=== PATIENT | female | born 1945 | race Caucasian/White ===

== ENCOUNTER 2017-03-03 23:17 | Inpatient (IN) | payer MEDICARE ==
[~2017-03-03] VITALS: Ht 172.7 cm; Wt 76.0 kg
[~2017-03-03 23:17] MED LIST: CYCL-36; HYDR-3533 PO; LEVO.2 PO; PROT40TA PO; SULF1TAB47 PO
[2017-03-03 23:24] VITALS: BP 179/97; PULSE 147; RESP 16; TEMP 101.2; O2SAT 97
[2017-03-03 23:25] VITALS: BP 179/97; PULSE 147; RESP 24; TEMP 101.2; O2SAT 95
[2017-03-03 23:30] VITALS: O2SAT 98
[2017-03-03] MEDS ORDERED: SODIUM CHLOR 0.9% 1000 ML INJ 1,000 ML IV ONE ×2 (23:34)
[2017-03-03 23:45] VITALS: BP 178/79; PULSE 145; RESP 24; TEMP 101.2; O2SAT 95
[2017-03-03] MEDS ORDERED: ACETAMINOPHEN 325 MG TAB PO ONE (23:45)
--- NOTE | 2017-03-03 23:53 | RADRPT ---
EXAM DATE/TIME: 03/03/2017 23:40 [place] COMPARISON: CHEST SINGLE AP, March 02, 2012, report only. INDICATIONS : Fever, cough. MEDICAL HISTORY : Hypertension. SURGICAL HISTORY : None. ENCOUNTER: Initial ACUITY: 1 day PAIN SCORE: 0/10 LOCATION: Bilateral chest FINDINGS: A single view of the chest demonstrates the lungs to be symmetrically aerated without evidence of mas s, infiltrate or effusion. There is mild diffuse prominence of the interstitial markings. The cardi omediastinal contours are unremarkable. Moderate scoliosis of the thoracic spine convex to the right . Absence of the humeral heads and tapering of the lateral aspect of the clavicles CONCLUSION: 1. Mild interstitial prominence without focal infiltrates. Derrick Cortes MD on March 03, 2017 at 23:49 Board Certified Radiologist. This report was verified electronically.
[2017-03-04] VITALS (12 sets, daily range): BP systolic 111–168; BP diastolic 57–97; PULSE 92–138; RESP 12–20; TEMP 96.5–100.6; O2SAT 97–99
[2017-03-04 00:30] LABS: CHLORIDE 103 MEQ/L (98-107); SODIUM (NA) 136 MEQ/L (136-145)
[2017-03-04 00:33] LABS: APTT (PATIENT) 21.4 SEC (24.3-30.1)
[2017-03-04 00:34] LABS: ANION GAP 10 MEQ/L (5-15); BICARBONATE 23.3 MEQ/L (21.0-32.0); BLOOD UREA NITROGEN 21 MG/DL (7-18)
[2017-03-04 00:37] LABS: ALT (GPT) 16 U/L (10-53); AST (GOT) 17 U/L (15-37); GLOMERULAR FILTRATION RATE 56 ML/MIN (>89)
[2017-03-04 00:39] LABS: TOTAL BILIRUBIN ADULT 0.3 MG/DL (0.2-1.0)
[2017-03-04] MEDS ORDERED: LEVO150T7 PO (00:39)
[2017-03-04] MEDS ORDERED: LISI10TA3 PO (00:39)
[2017-03-04 00:40] LABS: ALKALINE PHOSPHATASE 128 U/L (45-117)
[2017-03-04] MEDS ORDERED: MORPHINE SULFATE 4 MG/ML INJ IV PUSH ONE (00:45)
--- NOTE | 2017-03-04 01:10 | PD ---
HPI Chief Complaint: Fever Time Seen by Provider: 23:31 Travel History International Travel<30 days: No Contact w/Intl Traveler<30days: No Traveled to known affect area: No History of Present Illness HPI Patient is a 71 year old female who comes in complaining of bodyaches for the past day. She says she started to have pain to her arms and legs this afternoon. She reports chills, but did not take her temperature at home. Her daughter says it seems like she has been short of breath. She denies cough or chest pain. She denies nausea or vomiting. She denies abdominal pain or urinary symptoms. She takes Lortab at home for pain, but has not taken it this evening. 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 PFSH Past Medical History Arthritis: Yes (hips) Anxiety: Yes Dementia: Yes Diminished Hearing: No Genitourinary: Yes Hypertension: Yes Neurologic: Yes (neuropathy; gullien isis ) Immunizations Current: Yes Thyroid Disease: Yes Tetanus Vaccination: > 5 Years : 1 Para: 1 Dilation and Curettage (D&C): Yes Tubal Ligation: Yes Past Surgical History Surgical History: No Previous Surgery Social History Alcohol Use: Yes (OCC GLASS OF WINE) Tobacco Use: No (QUIT 30 YEARS AGO) Substance Use: No Allergies-Medications (Allergen,Severity, Reaction): Coded Allergies: codeine (Verified Allergy, Mild, RASH, 03/04/17) itching Reported Meds & Prescriptions Reported Meds & Active Scripts Active Reported Lisinopril 10 Mg Tab 10 Mg PO DAILY Levothyroxine (Levothyroxine Sodium) 150 Mcg Tab 150 Mcg PO DAILY Flexeril (Cyclobenzaprine HCl) 10 Mg Tab 10 Mg .ROUTE HS Lortab 5 mg/325 mg (Hydrocodone/Acetaminophen 5 mg/325 mg) 1 Tab 1 Tab PO Q4H PRN Review of Systems Except as stated in HPI: all other systems reviewed are Neg General / Constitutional: Positive: Chills HENT: No: Headaches, Lightheadedness Cardiovascular: No: Chest Pain or Discomfort Respiratory: No: Cough Gastrointestinal: No: Nausea, Vomiting, Abdominal Pain Genitourinary: No: Dysuria Musculoskeletal: Positive: Myalgias, Arthralgias, No: Edema Skin: No Rash, No Change in Pigmentation Neurologic: No: Weakness, Dizziness, Syncope Physical Exam Narrative GENERAL: Awake and alert, in no acute distress. SKIN: Focused skin assessment warm/dry. Left lower extremity warm to the touch. HEAD: Atraumatic. Normocephalic. EYES: Pupils equal and round. No scleral icterus. ENT: Mucous membranes pink and moist. NECK: Trachea midline. No JVD. CARDIOVASCULAR: Tachycardia, regular rhythm. No murmur appreciated. RESPIRATORY: No accessory muscle use. Decreased breath sounds throughout both lungs. Breath sounds equal bilaterally. GASTROINTESTINAL: Abdomen soft, non-tender, nondistended. MUSCULOSKELETAL: No obvious deformities. No clubbing. No cyanosis. No edema. NEUROLOGICAL: Awake and alert. No obvious cranial nerve deficits. Motor grossly within normal limits. Normal speech. PSYCHIATRIC: Appropriate mood and affect; insight and judgment normal. Data Data Last Documented VS Vital Signs Date Time Temp Pulse Resp B/P (MAP) Pulse Ox O2 Delivery O2 Flow Rate FiO2 03/04/17 01:46 100.6 118 18 135/68 (90) 98 2.00 03/04/17 00:47 Nasal Cannula Orders Orders Sepsis Workup Initiated (03/03/17 ) Complete Blood Count With Diff (03/03/17 23:34) Comprehensive Metabolic Panel (03/03/17 23:34) Prothrombin Time / Inr (Pt) (03/03/17 23:34) Act Partial Throm Time (Ptt) (03/03/17 23:34) Lactic Acid Sepsis Protocol (03/03/17 23:34) Lipase (03/03/17 23:34) Urinalysis - C+S If Indicated (03/03/17 23:34) Influenzae A/B Antigen (03/03/17 23:34) Blood Culture (03/03/17 23:34) Chest, Single Ap (03/03/17 23:34) Blood Glucose (03/03/17 23:34) Ecg Monitoring (03/03/17 23:34) Iv Access Insert/Monitor (03/03/17 23:34) Oximetry (03/03/17 23:34) Oxygen Administration (03/03/17 23:34) Acetaminophen (Tylenol) (03/03/17 23:45) Sodium Chlor 0.9% 1000 Ml Inj (Ns 1000 M (03/03/17 23:34) Sodium Chlor 0.9% 1000 Ml Inj (Ns 1000 M (03/03/17 23:34) Morphine Inj (Morphine Inj) (03/04/17 00:45) Ketorolac Inj (Toradol Inj) (03/04/17 01:45) Levofloxacin 750 Mg Premix Inj (Levaquin (03/04/17 01:45) Urine Culture (03/04/17 01:24) Vancomycin Inj (Vancomycin Inj) (03/04/17 02:15) Labs Laboratory Tests Test 03/04/17 00:09 03/04/17 00:55 03/04/17 01:24 Prothrombin Time 10.0 SEC Prothromb Time International Ratio 1.0 RATIO Activated Partial Thromboplast Time 21.4 SEC Blood Urea Nitrogen 21 MG/DL Creatinine 0.98 MG/DL Random Glucose 133 MG/DL Total Protein 7.8 GM/DL Albumin 3.4 GM/DL Calcium Level 9.1 MG/DL Alkaline Phosphatase 128 U/L Aspartate Amino Transf (AST/SGOT) 17 U/L Alanine Aminotransferase (ALT/SGPT) 16 U/L Total Bilirubin 0.3 MG/DL Sodium Level 136 MEQ/L Potassium Level 4.0 MEQ/L Chloride Level 103 MEQ/L Carbon Dioxide Level 23.3 MEQ/L Anion Gap 10 MEQ/L Estimat Glomerular Filtration Rate 56 ML/MIN Lactic Acid Level 2.1 mmol/L Lipase 314 U/L White Blood Count 10.2 TH/MM3 Red Blood Count 5.42 MIL/MM3 Hemoglobin 12.1 GM/DL Hematocrit 37.8 % Mean Corpuscular Volume 69.8 FL Mean Corpuscular Hemoglobin 22.3 PG Mean Corpuscular Hemoglobin Concent 32.0 % Red Cell Distribution Width 15.3 % Platelet Count 156 TH/MM3 Mean Platelet Volume 7.6 FL Neutrophils (%) (Auto) 92.5 % Lymphocytes (%) (Auto) 4.6 % Monocytes (%) (Auto) 2.7 % Eosinophils (%) (Auto) 0.1 % Basophils (%) (Auto) 0.1 % Neutrophils # (Auto) 9.4 TH/MM3 Lymphocytes # (Auto) 0.5 TH/MM3 Monocytes # (Auto) 0.3 TH/MM3 Eosinophils # (Auto) 0.0 TH/MM3 Basophils # (Auto) 0.0 TH/MM3 CBC Comment AUTO DIFF Differential Comment AUTO DIFF CONFIRMED Platelet Estimate NORMAL Platelet Morphology Comment NORMAL Ovalocytes 1+ Urine Color YELLOW Urine Turbidity SLIGHT Urine pH 5.5 Urine Specific [place] 1.015 Urine Protein NEG mg/dL Urine Glucose (UA) NEG mg/dL Urine Ketones NEG mg/dL Urine Occult Blood MOD Urine Nitrite NEG Urine Bilirubin NEG Urine Leukocyte Esterase SMALL Urine RBC 4-9 /hpf Urine WBC 9-14 /hpf Urine Squamous Epithelial Cells 0-5 /hpf Urine Mucus OCC /lpf Microscopic Urinalysis Comment CULTURE INDICATED MDM Medical Decision Making Medical Screen Exam Complete: Yes Emergency Medical Condition: Yes Medical Record Reviewed: Yes Differential Diagnosis sepsis vs pneumonia vs UTI vs cellulitis Narrative Course Patient is a 71-year-old female who comes in complaining of body aches and just feeling unwell. Exam shows some erythema and warmth to the left leg. She has decreased breath sounds in both lungs. IV established, labs sent. Patient given 2 L of fluids. Given Tylenol. Labs show a lactic acid of 2.1. BUN/creatinine creatinine suggest dehydration. Urine is positive for white blood cells. Chest x-ray is concerning for possible early pneumonia, shows and interstitial prominence. Chest X-Ray 03/03/17 1799 Signed Impressions: Service Date/Time: Friday, March 03, 2017 23:40 - CONCLUSION: 1. Mild interstitial prominence without focal infiltrates. Derrick Cortes MD Patient given Levaquin and vancomycin. Concern is for sepsis from pneumonia versus cellulitis. Patient will be admitted for further management. Sepsis Criteria SIRS Criteria (2 or more): Temp > 100.9 or < 96.8, Heart rate over 90 Sepsis Criteria (SIRS+source): Infect source susp/known Severe Sepsis (+one): Lactate >2 Criteria Outcome: Meets sepsis criteria Diagnosis Primary Impression: Sepsis Qualified Codes: A41.9 - Sepsis, unspecified organism Admitting Information Admitting Physician Requests: Admit Becky Acuña MD Mar 04, 2017 01:09
[2017-03-04 01:36] LABS: AUTOMATED NEUTROPHIL # 9.4 TH/MM3 (1.8-7.7); BASOPHIL % 0.1 % (0.0-2.0); EOSINOPHIL % 0.1 % (0.0-4.0); HEMATOCRIT 37.8 % (35.0-46.0); LYMPH % 4.6 % (9.0-44.0); LYMPHOCYTE # 0.5 TH/MM3 (1.0-4.8); MEAN CELL VOLUME 69.8 FL (80.0-100.0); MEAN CORPUSCULAR HEMOGLOBIN 22.3 PG (27.0-34.0); MONO % 2.7 % (0.0-8.0); NEUT % 92.5 % (16.0-70.0); PLATELET COUNT 156 TH/MM3 (150-450); RED BLOOD COUNT 5.42 MIL/MM3 (4.00-5.30); RED CELL DISTRIBUTION WIDTH 15.3 % (11.6-17.2); WHITE BLOOD COUNT 10.2 TH/MM3 (4.0-11.0)
[2017-03-04 01:39] LABS: BLOOD, URINE MOD (NEG); GLUCOSE,URINE NEG (NEG); KETONE, URINE NEG (NEG); NITRITE,URINE NEG (NEG); PH, URINE 5.5 (5.0-8.5)
[2017-03-04 01:45] LABS: HEMO FLAGS AUTO DIFF
[2017-03-04] MEDS ORDERED: KETOROLAC TROMETHAMINE 30 MG/ML (IVP) VIAL IV PUSH ONE (01:45)
[2017-03-04] MEDS ORDERED: LEVOFLOXACIN 750 MG PREMIX INJ 150 ML IV ONE (01:45)
[2017-03-04 01:49] LABS: OVALOCYTES 1+ (NORMAL)
[2017-03-04 01:50] LABS: PLATELET ESTIMATE SMEAR NORMAL (NORMAL); PLATELET MORPHOLOGY NORMAL (NORMAL); SCAN/DIFF AUTO DIFF CONFIRMED
[2017-03-04 01:57] LABS: SQUAMOUS EPITHELIAL CELL URINE 0-5 /hpf (0-5); URINE COLOR YELLOW (YELLW/STRAW)
[2017-03-04 01:59] LABS: COMMENT (UR) CULTURE INDICATED; CULTURE IF INDICATED CULTURE INDICATED; MUCUS URINE OCC /lpf (OCC)
[2017-03-04] MEDS ORDERED: VANCOMYCIN INJ 1,000 MG in SODIUM CHLOR 0.9% 250 ML INJ 250 ML IV ONE (02:15)
[2017-03-04 02:16] LABS: LACTIC ACID GHOST NOT REPORTABLE
[2017-03-04] MEDS ORDERED: ONDANSETRON HCL 4 MG/2 ML VIAL IVP PRN (03:15)
[2017-03-04] MEDS: ENOXAPARIN SODIUM 40 MG/0.4 ML SYRINGE SQ SCH (03:15)
[2017-03-04] MEDS ORDERED: Vancomycin Consult Pharmacy 1 EA OTHER SCH (03:15)
[2017-03-04] MEDS ORDERED: ACETAMINOPHEN 325 MG TAB PO PRN (03:15)
[2017-03-04] MEDS ORDERED: SODIUM CHLORIDE 0.9% FLUSH 10 ML FLUSH IV FLUSH PRN (03:15)
[2017-03-04] MEDS ORDERED: NALOXONE HCL 0.4 MG/ML AMP IV PUSH PRN (03:15)
[2017-03-04] MEDS: LEVOTHYROXINE SODIUM 75 MCG TAB PO SCH (06:17)
[2017-03-04] MEDS: ACETAMINOPHEN/HYDROcodone 325 MG/5 MG TAB PO PRN ×3 (06:26→18:51)
[2017-03-04] MEDS: SODIUM CHLORIDE 0.9% FLUSH 10 ML FLUSH IV FLUSH SCH (08:38)
[2017-03-04] MEDS: LISINOPRIL 10 MG TAB PO SCH (08:38)
--- NOTE | 2017-03-04 11:11 | HHI.HP ---
HPI Service [facility] Primary Care Physician Duc Haque MD Admission Diagnosis sepsis, pneumonia, cellulitis Diagnoses: Chief Complaint: fevers, chills Travel History International Travel<30 Days: No Contact w/Intl Traveler <30 Da: No Traveled to Known Affected Are: No History of Present Illness 71-year-old white female being admitted for sepsis secondary to possible cellulitis. Patient was in her usual state of health until sometime yesterday she said she felt a sudden onset of fevers, shaking, weakness. She noticed that her left lower leg was red and she thinks she was slightly short of breath due to her weakness. She denies having any new cough. She denies having any new pain symptoms anywhere in her body. Denies any dysuria. She said she took some Tylenol to some mild relief. At this point she decided come to the emergency room. She says that since last night the redness in her leg is essentially gone. Her lactic acid was elevated and a chest x-ray which I independently reviewed shows no focal infiltrates. 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 Significant arthritis Allergies: Coded Allergies: codeine (Verified Allergy, Mild, RASH, 03/04/17) itching Physical Exam Vital Signs Vital Signs Date Time Temp Pulse Resp B/P (MAP) Pulse Ox O2 Delivery O2 Flow Rate FiO2 03/04/17 08:00 98.0 102 12 140/64 (89) 97 03/04/17 04:33 99 Nasal Cannula 2.00 03/04/17 04:10 98.5 102 20 132/65 (87) 99 03/04/17 03:57 03/04/17 03:29 98.1 105 18 128/68 (88) 98 Nasal Cannula 2.00 03/04/17 02:22 99.4 115 18 134/70 (91) 98 Nasal Cannula 2.00 03/04/17 01:46 100.6 118 18 135/68 (90) 98 2.00 03/04/17 00:47 99.4 125 20 160/97 (118) 98 Nasal Cannula 2.00 03/04/17 00:00 138 20 168/87 (114) 98 Nasal Cannula 2.00 03/03/17 23:45 101.2 145 24 178/79 (112) 95 Room Air 03/03/17 23:30 98 Nasal Cannula 2.00 03/03/17 23:30 98 Nasal Cannula 2.00 03/03/17 23:30 98 Nasal Cannula 2.00 03/03/17 23:25 101.2 147 24 179/97 (124) 95 03/03/17 23:24 101.2 147 16 179/97 (124) 97 Physical Exam VS: Having fevers GENERAL: Elderly white female, well nourished for her age, no acute distress SKIN: Warm and dry. Has evidence of mild to moderate then use insufficiency and lower legs with onychomycosis on her feet. Has no noticeable erythema today on her left lower extremity that she says she had yesterday. EYES: No scleral icterus. No injection or drainage. ENT: No nasal bleeding or discharge. Mucous membranes pink and moist. CARDIOVASCULAR: Regular rate and rhythm. no murmurs RESPIRATORY: No accessory muscle use. Has good breath sounds bilaterally with very minimal crackles at the bases bilaterally GASTROINTESTINAL: Abdomen soft, non-tender, nondistended. Extremities: No clubbing, cyanosis, or edema. MUSCULOSKELETAL: grossly intact ROM with 5/5 strength in upper and lower extremities proximally. Significant edema with what appears to be cystic collections from fluid on her right wrist and her left ankle which is otherwise nontender to palpation and nonerythematous NEUROLOGICAL: Awake and alert. No obvious cranial nerve deficits. No facial droop nor slurred speech noted. PSYCHIATRIC: Appropriate mood and affect; insight and judgment normal. Laboratory Laboratory Tests Test 03/04/17 00:09 03/04/17 00:55 03/04/17 01:24 03/04/17 02:20 Prothrombin Time 10.0 Prothromb Time International Ratio 1.0 Activated Partial Thromboplast Time 21.4 Blood Urea Nitrogen 21 Creatinine 0.98 Random Glucose 133 Total Protein 7.8 Albumin 3.4 Calcium Level 9.1 Alkaline Phosphatase 128 Aspartate Amino Transf (AST/SGOT) 17 Alanine Aminotransferase (ALT/SGPT) 16 Total Bilirubin 0.3 Sodium Level 136 Potassium Level 4.0 Chloride Level 103 Carbon Dioxide Level 23.3 Anion Gap 10 Estimat Glomerular Filtration Rate 56 Lactic Acid Level 2.1 1.4 Lipase 314 Thyroid Stimulating Hormone 3rd Gen 0.199 White Blood Count 10.2 Red Blood Count 5.42 Hemoglobin 12.1 Hematocrit 37.8 Mean Corpuscular Volume 69.8 Mean Corpuscular Hemoglobin 22.3 Mean Corpuscular Hemoglobin Concent 32.0 Red Cell Distribution Width 15.3 Platelet Count 156 Mean Platelet Volume 7.6 Neutrophils (%) (Auto) 92.5 Lymphocytes (%) (Auto) 4.6 Monocytes (%) (Auto) 2.7 Eosinophils (%) (Auto) 0.1 Basophils (%) (Auto) 0.1 Neutrophils # (Auto) 9.4 Lymphocytes # (Auto) 0.5 Monocytes # (Auto) 0.3 Eosinophils # (Auto) 0.0 Basophils # (Auto) 0.0 CBC Comment AUTO DIFF Differential Comment AUTO DIFF CONFIRMED Platelet Estimate NORMAL Platelet Morphology Comment NORMAL Ovalocytes 1+ Urine Color YELLOW Urine Turbidity SLIGHT Urine pH 5.5 Urine Specific [place] 1.015 Urine Protein NEG Urine Glucose (UA) NEG Urine Ketones NEG Urine Occult Blood MOD Urine Nitrite NEG Urine Bilirubin NEG Urine Leukocyte Esterase SMALL Urine RBC 4-9 Urine WBC 9-14 Urine Squamous Epithelial Cells 0-5 Urine Mucus OCC Microscopic Urinalysis Comment CULTURE INDICATED Date/Time Source Procedure Growth Status 03/04/17 00:09 Blood Peripheral Aerobic Blood Culture Pending Received 03/04/17 00:09 Blood Peripheral Anaerobic Blood Culture Pending Received 03/04/17 00:12 Nasal Washing Influenza Types A,B Antigen (NAHID) - Final NEGATIVE FOR FLU A AND B ANTIGEN.... Complete 03/04/17 01:24 Urine Clean Catch Urine Culture Pending Received Result Diagram: 03/04/17 0055 03/04/17 0009 Imaging Last Impressions Chest X-Ray 03/03/17 2334 Signed Impressions: Service Date/Time: Friday, March 03, 2017 23:40 - CONCLUSION: 1. Mild interstitial prominence without focal infiltrates. MD Sade Downing VTE Risk Assessment Caprini VTE Risk Assessment: Mod/High Risk (score >= 2) Caprini Risk Assessment Model Point Value = 1 Point Value = 2 Point Value = 3 Point Value = 5 Age 41-60 Minor surgery BMI > 25 kg/m2 Swollen legs Varicose veins or History of unexplained or recurrent spontaneous Oral contraceptives or hormone replacement Sepsis (< 1 month) Serious lung disease, including pneumonia (< 1 month) Abnormal pulmonary function Acute myocardial infarction Congestive heart failure (< 1 month) History of inflammatory bowel disease Medical patient at bed rest Age 61-74 Arthroscopic surgery Major open surgery (> 45 min) Laparoscopic surgery (> 45 min) Malignancy Confined to bed (> 72 hours) Immobilizing plaster cast Central venous access Age >= 75 History of VTE Family history of VTE Factor V Leiden Prothrombin [id number] Lupus anticoagulant Anticardiolipin antibodies Elevated serum homocysteine Heparin-induced thrombocytopenia Other congenital or acquired thrombophilia Stroke (< 1 month) Elective arthroplasty Hip, pelvis, or leg fracture Acute spinal cord injury (< 1 month) Prophylaxis Regimen Total Risk Factor Score Risk Level Prophylaxis Regimen 0-1 Low Early ambulation 2 Moderate Order ONE of the following: *Sequential Compression Device (SCD) *Heparin 5000 units SQ BID 3-4 Higher Order ONE of the following medications: *Heparin 5000 units SQ TID *Enoxaparin/Lovenox 40 mg SQ daily (WT < 150 kg, CrCl > 30 mL/min) *Enoxaparin/Lovenox 30 mg SQ daily (WT < 150 kg, CrCl > 10-29 mL/min) *Enoxaparin/Lovenox 30 mg SQ BID (WT < 150 kg, CrCl > 30 mL/min) AND/OR *Sequential Compression Device (SCD) 5 or more Highest Order ONE of the following medications: *Heparin 5000 units SQ TID (Preferred with Epidurals) *Enoxaparin/Lovenox 40 mg SQ daily (WT < 150 kg, CrCl > 30 mL/min) *Enoxaparin/Lovenox 30 mg SQ daily (WT < 150 kg, CrCl > 10-29 mL/min) *Enoxaparin/Lovenox 30 mg SQ BID (WT < 150 kg, CrCl > 30 mL/min) AND *Sequential Compression Device (SCD) Assessment and Plan Assessment and Plan 71-year-old white female admitted for sepsis secondary to cellulitis Sepsis - Lactic acid significantly improved, blood cultures pending - Continue broad-spectrum antibiotics - Most likely was secondary to cellulitis, clinically improving - Unlikely respiratory cause; no evidence of clinical UTI, will therefore not obtain UA Hypothyroidism - Continue home medication Arthritis - Continue home pain medication lovenox Physician Certification 2 Midnight Certification Type: Admission for Inpatient Services Order for Inpatient Services The services are ordered in accordance with Medicare regulations or non- Medicare payer requirements, as applicable. In the case of services not specified as inpatient-only, they are appropriately provided as inpatient services in accordance with the 2-midnight benchmark. days is the estimated time the patient will need to remain in the hospital, assuming treatment plan goals are met and no additional complications. Matteo Lunsford MD Mar 04, 2017 11:11
[2017-03-04] MEDS ORDERED: ENOXAPARIN SODIUM 30 MG/0.3 ML SYRINGE SQ SCH (12:00)
[2017-03-04] MEDS ORDERED: FUROSEMIDE 20 MG/2 ML VIAL IV PUSH ONE (12:00)
[2017-03-04] MEDS: VANCOMYCIN INJ 1,300 MG in SODIUM CHLORID 0.9% 500 ML INJ 500 ML IV SCH (16:25)
[2017-03-05] VITALS: BP 124/74; PULSE 97; RESP 18; TEMP 98.9; O2SAT 95
[2017-03-05] MEDS: ACETAMINOPHEN/HYDROcodone 325 MG/5 MG TAB PO PRN ×2 (01:17→09:08)
[2017-03-05] MEDS: SODIUM CHLORIDE 0.9% FLUSH 10 ML FLUSH IV FLUSH SCH ×2 (01:18→09:08)
[2017-03-05] MEDS ORDERED: LEVOFLOXACIN 750 MG PREMIX INJ 150 ML IV SCH (01:30)
[2017-03-05] MEDS: ENOXAPARIN SODIUM 40 MG/0.4 ML SYRINGE SQ SCH (03:18)
[2017-03-05 04:00] VITALS: BP 130/70; PULSE 101; RESP 20; TEMP 97.9; O2SAT 93
[2017-03-05] MEDS: LEVOTHYROXINE SODIUM 75 MCG TAB PO SCH (05:18)
[2017-03-05 05:49] LABS: AUTOMATED NEUTROPHIL # 3.7 TH/MM3 (1.8-7.7); BASOPHIL % 0.2 % (0.0-2.0); EOSINOPHIL % 0.4 % (0.0-4.0); HEMATOCRIT 30.2 % (35.0-46.0); LYMPH % 25.8 % (9.0-44.0); LYMPHOCYTE # 1.4 TH/MM3 (1.0-4.8); MEAN CELL VOLUME 72.4 FL (80.0-100.0); MEAN CORPUSCULAR HEMOGLOBIN 22.5 PG (27.0-34.0); MONO % 6.5 % (0.0-8.0); NEUT % 67.1 % (16.0-70.0); PLATELET COUNT 123 TH/MM3 (150-450); RED BLOOD COUNT 4.18 MIL/MM3 (4.00-5.30); RED CELL DISTRIBUTION WIDTH 15.8 % (11.6-17.2); WHITE BLOOD COUNT 5.5 TH/MM3 (4.0-11.0)
[2017-03-05 05:57] LABS: HEMO FLAGS AUTO DIFF
[2017-03-05 07:19] LABS: OVALOCYTES 1+ (NORMAL); PLATELET ESTIMATE SMEAR LOW (NORMAL); PLATELET MORPHOLOGY NORMAL (NORMAL); SCAN/DIFF AUTO DIFF CONFIRMED
[2017-03-05 08:00] VITALS: PULSE 74
[2017-03-05] MEDS: LISINOPRIL 10 MG TAB PO SCH (09:08)
[2017-03-05 09:20] VITALS: BP 157/103; PULSE 93; RESP 14; TEMP 97.6; O2SAT 100
[2017-03-05] MEDS: VANCOMYCIN INJ 1,300 MG in SODIUM CHLORID 0.9% 500 ML INJ 500 ML IV SCH (11:22)
--- NOTE | 2017-03-05 14:13 | HHI.DCPOC ---
Discharge Care Plan Diagnosis: (1) Sepsis Goals to Promote Your Health * To prevent worsening of your condition and complications * To maintain your health at the optimal level Directions to Meet Your Goals Take your medications as prescribed Follow your dietary instruction Follow activity as directed Keep your appointments as scheduled Take your immunizations and boosters as scheduled If your symptoms worsen call your PCP, if no PCP go to Urgent Care Center or Emergency Room Smoking is Dangerous to Your Health. Avoid second hand smoke Call the 24-hour hour crisis hotline for domestic abuse at Abril Orellana MD Mar 05, 2017 14:13
[2017-03-05] MEDS ORDERED: LEVO500T8 PO (14:14)
--- NOTE | 2017-03-05 14:18 | HHI.DS ---
Discharge Summary Admission Date Mar 04, 2017 at 03:09 Discharge Date: Mar 05, 2017 Admitting Diagnosis sepsis, pneumonia, cellulitis (1) Cellulitis ICD Code: L03.90 - Cellulitis, unspecified (2) Sepsis due to pneumonia ICD Code: J18.9 - Pneumonia, unspecified organism; A41.9 - Sepsis, unspecified organism Procedures none Brief History - From Admission 71-year-old white female being admitted for sepsis secondary to possible cellulitis. Patient was in her usual state of health until sometime yesterday she said she felt a sudden onset of fevers, shaking, weakness. She noticed that her left lower leg was red and she thinks she was slightly short of breath due to her weakness. She denies having any new cough. She denies having any new pain symptoms anywhere in her body. Denies any dysuria. She said she took some Tylenol to some mild relief. At this point she decided come to the emergency room. She says that since last night the redness in her leg is essentially gone. Her lactic acid was elevated and a chest x-ray which I independently reviewed shows no focal infiltrates. CBC/BMP: 03/05/17 0513 03/05/17 0513 Significant Findings Laboratory Tests Test 03/04/17 00:09 03/04/17 00:55 03/04/17 01:24 03/04/17 02:20 Activated Partial Thromboplast Time 21.4 SEC (24.3-30.1) Blood Urea Nitrogen 21 MG/DL (7-18) Random Glucose 133 MG/DL (74-106) Alkaline Phosphatase 128 U/L (45-117) Estimat Glomerular Filtration Rate 56 ML/MIN (>89) Lactic Acid Level 2.1 mmol/L (0.4-2.0) Thyroid Stimulating Hormone 3rd Gen 0.199 uIU/ML (0.358-3.740) Red Blood Count 5.42 MIL/MM3 (4.00-5.30) Mean Corpuscular Volume 69.8 FL (80.0-100.0) Mean Corpuscular Hemoglobin 22.3 PG (27.0-34.0) Neutrophils (%) (Auto) 92.5 % (16.0-70.0) Lymphocytes (%) (Auto) 4.6 % (9.0-44.0) Neutrophils # (Auto) 9.4 TH/MM3 (1.8-7.7) Lymphocytes # (Auto) 0.5 TH/MM3 (1.0-4.8) Ovalocytes 1+ (NORMAL) Urine Occult Blood MOD (NEG) Urine Leukocyte Esterase SMALL (NEG) Urine RBC 4-9 /hpf (0-3) Urine WBC 9-14 /hpf (0-5) Test 03/05/17 05:13 Hemoglobin 9.4 GM/DL (11.6-15.3) Hematocrit 30.2 % (35.0-46.0) Mean Corpuscular Volume 72.4 FL (80.0-100.0) Mean Corpuscular Hemoglobin 22.5 PG (27.0-34.0) Mean Corpuscular Hemoglobin Concent 31.0 % (32.0-36.0) Platelet Count 123 TH/MM3 (150-450) Platelet Estimate LOW (NORMAL) Ovalocytes 1+ (NORMAL) Estimat Glomerular Filtration Rate 76 ML/MIN (>89) Imaging Last Impressions Chest X-Ray 03/03/17 2334 Signed Impressions: Service Date/Time: Friday, March 03, 2017 23:40 - CONCLUSION: 1. Mild interstitial prominence without focal infiltrates. Derrick Cortes MD PE at Discharge GENERAL: This is a well-nourished, well-developed patient, in no apparent distress. CARDIOVASCULAR: Regular rate and rhythm without murmurs, gallops, or rubs. RESPIRATORY: Clear to auscultation. Breath sounds equal bilaterally. No wheezes , rales, or rhonchi. GASTROINTESTINAL: Abdomen soft, non-tender, nondistended. Normal active bowel sounds MUSCULOSKELETAL: Gross deformities consistent with neuropathy, thenar prominences is flattened and there is decreased muscle density of the right greater than left hand Uses a wheelchair at baseline NEURO: Alert & Oriented x4 to person, place, time, situation. Moves all ext x4 Pt update on day of discharge Patient doing much better Respiratory status is improved, Arm is improved leukocytosis stable, no fever, heart rate improved Discharge plans discussed with patient Hospital Course Patient is a 71-year-old female was seen and evaluated for signs of sepsis including heart rate in temperature elevation. Thought to have pneumonia versus cellulitis. She was treated for both. Amazingly, she continued to improve overnight. She was discharged home to continue oral antibiotics and follow-up with her primary care provider Pt Condition on Discharge: Good Discharge Disposition: Discharge Home Discharge Time: <= 30 minutes Discharge Instructions DIET: Follow Instructions for: As Tolerated, No Restrictions Activities you can perform: Regular-No Restrictions Follow up Referrals: PCP Follow-up - 1 Week New Medications: Levofloxacin (Levofloxacin) 500 Mg Tablet 500 MG PO DAILY for Infection, #5 TAB 0 Refills Continued Medications: Cyclobenzaprine Hcl (Flexeril) 10 Mg Tab 10 MG .ROUTE HS, #10 TAB Hydrocodone/Acetaminophen 5 mg/325 mg (Lortab 5 mg/325 mg) 1 Tab 1 TAB PO Q4H PRN for PAIN SCALE 1 TO 5, TAB Levothyroxine (Levothyroxine) 150 Mcg Tab 150 MCG PO DAILY for Thyroid, #30 TAB 0 Refills Lisinopril (Lisinopril) 10 Mg Tab 10 MG PO DAILY, #30 TAB 0 Refills Abril Orellana MD Mar 05, 2017 14:18
[2017-03-05 14:23] VITALS: BP 134/83; PULSE 94; RESP 15; TEMP 97.8; O2SAT 97
[2017-03-06] MEDS ORDERED: PHARMACY ORDERED LAB ONE (22:45)
== END 2017-03-05 15:37 | disposition home or self-care (01) | DRG 871 ==
LOC: PHED 23:17 → PHEDA 03-04 03:09 → PH3A 03-04 04:07
PROVIDERS: ADMIT Hospitalist; ATTEND Hospitalist
DX: A41.9 Sepsis, unspecified organism (principal); J18.9 Pneumonia, unspecified organism; L03.90 Cellulitis, unspecified; G62.9 Polyneuropathy, unspecified; F03.90 Unspecified dementia, unspecified severity, without behavioral disturbance, psychotic disturbance, mood disturbance, and anxiety; E86.0 Dehydration; E03.9 Hypothyroidism, unspecified; M19.90 Unspecified osteoarthritis, unspecified site; I10 Essential (primary) hypertension; B35.1 Tinea unguium; F41.9 Anxiety disorder, unspecified; Z88.5 Allergy status to narcotic agent; Z86.14 Personal history of Methicillin resistant Staphylococcus aureus infection
CPT/HCPCS: 71010; 80048; 80053; 81001; 83605; 83690; 84443; 85025; 85610; 85730; 87040; 87086; 87804; 96361; 96365; 96368; 96375; J1650; J1885; J1940; J1956; J3370; J7030; J7040; J7050